=== PATIENT | female | born 1985 | race Caucasian/White ===

== ENCOUNTER 2021-12-03 08:50 | Outpatient (CLI) | payer OTHER | END 2021-12-03 08:51 | disposition home or self-care (01) | LOC: CSHULT 08:50 | PROVIDERS: ATTEND Student in an Organized Health Care Education/Training Program | DX: E07.89 Other specified disorders of thyroid (principal); E04.2 Nontoxic multinodular goiter | CPT/HCPCS: 76536 ==

== ENCOUNTER 2021-12-03 09:33 | Outpatient (CLI) | payer OTHER | END 2021-12-03 09:34 | disposition home or self-care (01) | LOC: CSHMAMMO 09:33 | PROVIDERS: ATTEND Student in an Organized Health Care Education/Training Program | DX: Z12.31 Encounter for screening mammogram for malignant neoplasm of breast (principal); Z80.3 Family history of malignant neoplasm of breast | CPT/HCPCS: 77063; 77067 ==

== ENCOUNTER 2022-10-15 12:29 | Emergency (ER) | payer OTHER | END 2022-10-15 13:40 | disposition home or self-care (01) | LOC: CSHERS 12:29 | DX: H91.92 Unspecified hearing loss, left ear (principal) | CPT/HCPCS: 99282 ==

== ENCOUNTER 2024-03-27 11:56 | Outpatient (CLI) | payer OTHER | END 2024-03-27 11:57 | disposition home or self-care (01) | LOC: CSHRAD 11:56 | PROVIDERS: ATTEND Nurse Practitioner Family | DX: M46.1 Sacroiliitis, not elsewhere classified (principal) | CPT/HCPCS: 72202 ==

== ENCOUNTER 2024-10-04 12:07 | Outpatient (CLI) | payer BC ==
[2024-10-04 13:34] LABS: #Basophils 0.04 10x3/uL (0.0-0.2); #Eosinophils 0.11 10x3/uL (0.0-0.5); #Monocytes 0.64 10x3/uL (0.0-1.1); #Neutrophils 5.73 10x3/uL (1.5-8.4); %Basophils 0.5 % (0.0-2.0); %Eosinophils 1.3 % (0.0-6.0); %Lymphocytes 25.2 % (18.0-47.0); %Monocytes 7.3 % (0.0-10.0); %Neutrophils 65.4 % (40.0-75.0); Hematocrit 38.8 % (34.9-44.5); Hemoglobin 13.2 g/dL (12.0-15.5); Mean Corpuscular Hemoglobin 30.7 pg (27.0-33.0); Mean Corpuscular Volume 90.2 fL (81.6-98.3); Mean Platelet Volume 10.2 fL (7.4-10.4); Platelet Count 259 10x3/uL (150-450); RBC Distribution Width 12.5 % (11.5-14.5); White Blood Cell (WBC) Count 8.8 10x3/uL (3.5-10.5)
[2024-10-04 13:49] LABS: Anion Gap 12 mmol/L (10-20); BUN (Urea Nitrogen) 18 mg/dL (7.0-18.7); Calc. Creatinine Clearance 0 mL/min (70-130); Calcium 9.2 mg/dL (7.8-10.44); Carbon Dioxide 24 mmol/L (22-29); Chloride 110 mmol/L (98-107); Estimated GFR 116; Glucose 82 mg/dL (70-105); Potassium 4.4 mmol/L (3.5-5.1); Sodium 142 mmol/L (136-145)
== END 2024-10-04 12:08 | disposition home or self-care (01) ==
LOC: CSHLAB 12:07
PROVIDERS: ATTEND Specialist
DX: Z01.812 Encounter for preprocedural laboratory examination (principal); M79.3 Panniculitis, unspecified; L30.4 Erythema intertrigo
CPT/HCPCS: 80048; 85025

== ENCOUNTER 2024-10-10 05:50 | Day surgery (SDC) | payer BC ==
[2024-10-04 12:57] VITALS: BMI 22.6
[2024-10-10] MEDS ORDERED: Ketorolac Tromethamine 30 MG (1 mL) VIAL ONE (06:45)
[2024-10-10] MEDS ORDERED: Acetaminophen 500 MG TAB ONE (06:45)
[2024-10-10] MEDS ORDERED: PROPOFOL 20 ML ONE (07:02)
[2024-10-10] MEDS ORDERED: Lidocaine 1% PF 5 ML VIAL ONE (07:02)
[2024-10-10] MEDS ORDERED: fentaNYL 50 mcg/mL 1 mL Vial ONE ×3 (07:02→09:12)
[2024-10-10] MEDS ORDERED: Rocuronium Bromide 10 MG/ML (10ML VIAL) ONE (07:02)
[2024-10-10] MEDS ORDERED: Sevoflurane 250 ML INH ANEST BOTTLE ONE (07:12)
[2024-10-10] MEDS ORDERED: Bupivacaine/Epinephrine 0.25% 30 ML VIAL ONE (07:14)
[2024-10-10] MEDS ORDERED: CEFAZOLIN 2 GM VIAL ONE ×2 (07:24→07:51)
[2024-10-10] MEDS ORDERED: Dexamethasone 4 mg/ml Vial ONE (07:37)
[2024-10-10] MEDS ORDERED: Ondansetron PF 4 MG/2 ML Vial ONE (08:07)
[2024-10-10] MEDS ORDERED: SUGAMMADEX SODIUM 200 MG/2 ML VIAL ONE (08:31)
[2024-10-10] MEDS ORDERED: Meperidine HCl/PF 25 MG (1 mL) VIAL ONE (09:41)
[2024-10-10] MEDS ORDERED: HYDROcodone/Acetaminophen 5/325 mg Tablet ONE ×2 (10:20→10:23)
== END 2024-10-10 11:12 | disposition home or self-care (01) ==
LOC: CSHSDC 05:50
PROVIDERS: ATTEND Specialist
PROC: 0JB80ZZ Excision of Abdomen Subcutaneous Tissue and Fascia, Open Approach (ICD-10-PCS; principal; 2024-10-10)
DX: M79.3 Panniculitis, unspecified (principal); F90.9 Attention-deficit hyperactivity disorder, unspecified type; H81.09 Meniere's disease, unspecified ear; R63.4 Abnormal weight loss; Z68.22 Body mass index [BMI] 22.0-22.9, adult; Z86.39 Personal history of other endocrine, nutritional and metabolic disease; Z90.49 Acquired absence of other specified parts of digestive tract; Z98.51 Tubal ligation status; Z79.899 Other long term (current) drug therapy
CPT/HCPCS: 88305; A6258; J1100; J1885; J2175; J2405; J2704; J3010